=== PATIENT | male | born 2000 | race Two or more races ===

== ENCOUNTER → 2022-02-07 | Emergency (ER) | payer BC ==
[~2022-02-07] VITALS: Ht 177.8 cm; Wt 79.4 kg
[~2022-02-07] MED LIST: AMOX-CLAV 875-1 EACH PO; NAPROXEN500 MG PO
== END | disposition home or self-care (01) ==
LOC: ER 00:37
DX: J02.0 Streptococcal pharyngitis (principal); Z20.822 Contact with and (suspected) exposure to COVID-19